=== PATIENT | male | born 1970 | race Caucasian/White ===

== ENCOUNTER 2017-02-23 21:41 | Emergency (ER) | payer OTHER ==
[~2017-02-23] VITALS: Ht 177.8 cm; Wt 80.5 kg
[2017-02-23 22:39] VITALS: Ht 177.8 cm; Wt 80.5 kg
--- NOTE | 2017-02-24 01:40 | ERD ---
ER Documentation Chief Complaint Date/Time DATE: 02/24/17 TIME: 01:36 Chief Complaint CP radiating to his neck x days now, worst today HPI Patient is a 47-year-old male who presents with sudden onset, intermittent, sharp right-sided chest pain for 2 days. He states that the pain is present only when he moves his head from side to side and when he coughs. He denies pain with deep inspiration. He denies having significant cough or cough productive of sputum. He denies hemoptysis. He denies back pain. He exercises regularly. He denies family history of cardiac disease. He states that the pain was worse yesterday and resolved. It recurred today, and he called his health insurance plan and was told by a nurse to come to the emergency department. He is already scheduled for an outpatient echo due to heart murmur. ROS All systems reviewed and are negative except as per history of present illness. Medications Home Meds Reported Medications [None] No Conflict Check 10/15/15 Allergies Allergies: Coded Allergies: No Known Allergy (Unverified , 10/15/15) PMhx/Soc Past medical history: None Past surgical history: None Social history: Denies tobacco, alcohol or illicit drugs Medical and Surgical Hx: pt denies Medical Hx, pt denies Surgical Hx History of Surgery: Yes (SEPTUM REPAIR 01/2015) Anesthesia Reaction: No Hx Neurological Disorder: No Hx Respiratory Disorders: No Hx Cardiac Disorders: No Hx Psychiatric Problems: No Hx Miscellaneous Medical Probl: No Hx Alcohol Use: No Hx Substance Use: No Hx Tobacco Use: No Smoking Status: Never smoker FmHx Family History: No coronary disease, No diabetes Physical Exam Vitals Vital Signs Date Time Temp Pulse Resp B/P Pulse Ox O2 Delivery O2 Flow Rate FiO2 02/24/17 03:10 64 18 141/80 99 Room Air 02/24/17 01:32 69 15 144/90 100 Room Air 02/23/17 22:39 99.8 82 20 159/89 100 Physical Exam Const: Alert, no acute distress Head: Atraumatic Eyes: Normal Conjunctiva, no pallor, no icterus ENT: Normal External Ears, Nose and Mouth. Neck: Full range of motion. No meningismus. No tenderness, no adenopathy Resp: Clear to auscultation bilaterally, no wheezes, no rales Cardio: Regular rate and rhythm, 2 out of 4 diastolic murmur heard at carotid and axilla Abd: Soft, non tender, non distended. Normal bowel sounds Skin: No petechiae or rashes Back: No midline or flank tenderness Ext: No cyanosis, or edema, 2+ pulses in 4 extremities Neur: Awake and alert, cranial nerves II through XII intact bilaterally, strength and sensation full in 4 extremities Psych: Normal Mood and Affect Procedures/MDM EKG read by me: Time 2318, rate 72 Rhythm: Normal sinus [place]: Normal Intervals: Normal ST-T waves: no ischemic changes Ectopy: No Q-waves: No Impression: No evidence of ischemia or arrhythmia, borderline LVH MDM: Patient is a 47-year-old male who presents with very atypical chest pain for 2 days. He states that he only has the pain with certain movements of his neck and with coughing. He has a nonischemic EKG and an unremarkable chest x- ray. He is PERC negative. I did not believe that he required workup for acute coronary syndrome based on the description of symptoms. There are no features concerning for aortic dissection. He does not have muscle tenderness on exam, but I suspect a musculoskeletal etiology versus pleurisy. He does have a loud murmur, and is already scheduled for an outpatient echocardiogram next week. Advised him not to exercise until he has followed up with cardiology. I advised him on return precautions. Departure Diagnosis: Primary Impression: Chest pain Chest pain type: unspecified Qualified Code: R07.9 - Chest pain, unspecified type Additional Impression: Heart murmur Condition: RAMIRO Montes De Oca MD Feb 24, 2017 01:40
--- NOTE | 2017-02-24 02:52 | RADRPT ---
PROCEDURE: XR Chest. CLINICAL INDICATION: Chest pain. TECHNIQUE: Single frontal view of the chest COMPARISON: None. FINDINGS: The cardiomediastinal silhouette is within normal limits. The lungs are clear. No signs of pleural f luid or pneumothorax are seen. The osseous structures and soft tissues are unremarkable. IMPRESSION: No evidence for active cardiopulmonary disease. RPTAT: [facility] Physician Judi Date Time Electronically viewed and signed by Physician Judi on 02/24/2017 02:52 RS/
[2017-02-24 03:10] VITALS: BP 141/80; PULSE 64; RESP 18
== END 2017-02-24 03:12 | disposition home or self-care (01) ==
LOC: E/R 21:41
DX: R07.9 Chest pain, unspecified (principal); R01.1 Cardiac murmur, unspecified; R40.2142 Coma scale, eyes open, spontaneous, at arrival to emergency department; R40.2252 Coma scale, best verbal response, oriented, at arrival to emergency department; R40.2362 Coma scale, best motor response, obeys commands, at arrival to emergency department
CPT/HCPCS: 36415; 71010; 93005